=== PATIENT | female | born 1955 | race Caucasian/White ===

== ENCOUNTER 2022-02-20 16:20 | Inpatient (IN) | payer BC ==
--- OUTSIDE RECORDS SUMMARY | 2022-02-20 16:23 | XMS REPORT | Continuity of Care Document ---
:1955 Author Organization [facility] Address [address] [place] [address] Dr. Briceño [address] [place] [id number] Care Team Providers Name Role Phone Caesar Arthur Attending Clinician Unavailable Problems This patient has no known problems. Allergies, Adverse Reactions, Alerts This patient has no known allergies or adverse reactions. Medications This patient has no known medications. Procedures This patient has no known procedures. Encounters Start End Encounter Admission Attending Care Care Encounter Source Date/Time Date/Time Type Type Clinicians Facility Department ID 2021-11-02 Outpatient Caesar Arthur [facility] [id number] Common 07:49:01 [facility] Results This patient has no known results.
[2022-02-20 17:25] LABS: Hematocrit 41.8 % (36.0-45.0); Lymphocytes % 26.9 % (15.3-44.8); MCV 83.4 fL (80-100); MPV 9.6 fL (7.6-11.3); RBC Red Blood Cell Count 5.01 M/uL (3.86-4.86)
[2022-02-20 18:08] LABS: Albumin 3.8 g/dL (3.4-5.0); Bilirubin Direct 0.2 mg/dL (0-0.2); Bilirubin Total 0.5 mg/dL (0.2-1.0); Magnesium 2.7 mg/dL (1.8-2.4); Potassium 4.7 mmol/L (3.5-5.1); Protein, Total 7.5 g/dL (6.4-8.2); Troponin High Sensitivity 15.1 pg/mL (<58.9)
--- NOTE | 2022-02-20 19:40 | EDPHYS ---
Physician Documentation [facility] Name: Carley Elizabeth Age: 66 yrs Sex: Female : 1955 Arrival Date: 02/20/2022 Time: 16:22 Bed 26 Private MD: Caesar Arthur T ED Physician Coral Billingsley HPI: 02/20 21:34 This 66 yrs old Female presents to ER via Ambulatory with complaints of Blood clots in kb lungs. 21:34 The patient has shortness of breath at rest. Onset: The symptoms/episode began/occurred kb 2 month(s) ago. Duration: The symptoms are continuous. The patient's shortness of breath is aggravated by exertion, is alleviated by nothing. Associated signs and symptoms: The patient has no apparent associated signs or symptoms. Severity of symptoms: At their worst the symptoms were moderate in the emergency department the symptoms are unchanged. The patient has not experienced similar symptoms in the past. The patient has been recently seen by a physician:. Pt reports shortness of breath, worse on exertion, that started about 2 months ago. States she was referred to Dr Lee who ordered a CT PE which she had done today. States she was on her way home when his office called and told her to come to the ER for admission due to bilateral PEs. Historical: - Allergies: 16:53 No Known Allergies; ss - Home Meds: 16:54 iron supplement [Active]; ss - PMHx: 16:54 None; ss - PSHx: 16:54 Gastric Bypass 2010; Cholecystectomy; ss - Immunization history:: Adult Immunizations up to date. - Social history:: Smoking status: Patient denies any tobacco usage or history of. ROS: 21:33 Constitutional: Negative for fever, chills, and weight loss. kb 21:33 Respiratory: Positive for dyspnea on exertion, shortness of breath. 21:33 All other systems are negative. Exam: 21:33 Constitutional: This is a well developed, well nourished patient who is awake, alert, kb and in no acute distress. Head/Face: Normocephalic, atraumatic. ENT: Moist Mucous membranes Cardiovascular: Regular rate and rhythm with a normal S1 and S2. No gallops, murmurs, or rubs. No pulse deficits. Respiratory: Respirations even and unlabored. No increased work of breathing. Talking in full sentences Abdomen/GI: Soft, non-tender. No distention Skin: Warm, dry with normal turgor. Normal color. MS/ Extremity: Pulses equal, no cyanosis. Neurovascular intact. Full, normal range of motion. Neuro: Awake and alert, GCS 15, oriented to person, place, time, and situation. Moves all extremities. Normal gait. Psych: Awake, alert, with orientation to person, place and time. Behavior, mood, and affect are within normal limits. Vital Signs: 16:51 Pulse 69; Resp 19; Temp 97.9(O); Pulse Ox 91% on R/A; Weight 150.14 kg; Height 5 ft. 5 ss in. (165.10 cm); Pain 0/10; 16:54 BP 138 / 73; ss 19:25 BP 133 / 76; Pulse 62; Resp 18 S; Pulse Ox 94% on R/A; Pain 0/10; ha1 20:30 BP 110 / 68; Pulse 62; Resp 22 S; Pulse Ox 96% on R/A; ha1 21:30 BP 120 / 65; Pulse 66; Resp 17; Pulse Ox 92% on R/A; ha1 22:31 BP 109 / 65; Pulse 65; Resp 19 S; Pulse Ox 93% on R/A; ha1 16:51 Body Mass Index 55.08 (150.14 kg, 165.10 cm) ss MDM: 16:59 Patient medically screened. kb 21:33 Data reviewed: vital signs, nurses notes. Data interpreted: Pulse oximetry: on room air kb is 96 %. Interpretation: normal. Counseling: I had a detailed discussion with the patient and/or guardian regarding: the historical points, exam findings, and any diagnostic results supporting the discharge/admit diagnosis, lab results, radiology results, the need for further work-up and treatment in the hospital. 02/20 17:00 Order name: Basic Metabolic Panel; Complete Time: 18:13 kb 02/20 17:00 Order name: CBC with Diff; Complete Time: 17:29 kb 02/20 17:00 Order name: LFT's; Complete Time: 18:13 kb 02/20 17:00 Order name: Magnesium; Complete Time: 18:13 kb 02/20 17:00 Order name: NT PRO-BNP; Complete Time: 18:13 kb 02/20 17:00 Order name: PT-INR; Complete Time: 17:30 kb 02/20 17:00 Order name: Troponin HS; Complete Time: 18:13 kb 02/20 20:09 Order name: SARS RAPID: pt. admited; Complete Time: 20:55 ha1 02/20 23:36 Order name: Urine Dipstick-Ancillary; Complete Time: 00:26 EDMS 02/21 02:26 Order name: CBC with Automated Diff; Complete Time: 02:28 EDMS 02/21 02:53 Order name: Basic Metabolic Panel; Complete Time: 04:17 EDMS 02/21 02:53 Order name: Magnesium; Complete Time: 04:17 EDMS 02/21 09:04 Order name: US EDMS 02/20 17:00 Order name: EKG; Complete Time: 17:00 kb 02/20 17:00 Order name: Cardiac monitoring; Complete Time: 19:35 kb 02/20 17:00 Order name: EKG - Nurse/Tech; Complete Time: 19:35 kb 02/20 17:00 Order name: IV Saline Lock; Complete Time: 19:35 kb 02/20 17:00 Order name: Labs collected and sent; Complete Time: 19:35 kb 02/20 17:00 Order name: O2 Per Protocol; Complete Time: 19:35 kb 02/20 17:00 Order name: O2 Sat Monitoring; Complete Time: 19:35 kb Administered Medications: 19:51 Drug: Lovenox (enoxaparin) 1 mg/kg Route: Sub-Q; Site: right lower abdomen; ha1 20:30 Follow up: Response: No adverse reaction ha1 Disposition Summary: 02/20/22 19:40 Hospitalization Ordered Hospitalization Status: Observation kb Provider: Fabian Phillips Condition: Fair kb Problem: new kb Symptoms: are unchanged kb Bed/Room Type: Standard kb Location: Telemetry/MedSurg (observation)(02/21/22 15:43) dw Room Assignment: 411(02/21/22 15:43) dw Diagnosis - Pulmonary embolism without acute cor pulmonale kb Forms: - Medication Reconciliation Form kb - SBAR form kb Addendum: 02/24/2022 19:31 STAFF ATTESTATION STATEMENT: I was immediately available onsite in the emergency s d2 department for consultation in the care of this patient. I did not see or examine this patient. Coral Billingsley MD. Signatures: Dispatcher [employer] EDDebra Kelsey, REQUIREMENTS ANALYST-C REQUIREMENTS ANALYST-Barbra Flanenry, RN RN Keya Person RN RN ss Basinger, Emily, RN RN Coral Hills MD MD sd2 Sydney Seals RN RN Whitley Salazar, PADavidC PA-Janneth sb4 Corrections: (The following items were deleted from the chart) 02/20 21: 19:40 Telemetry/MedSurg (observation) kb eb1 19:40 kb eb1 02/21 15:43 02/20 21:33 [facility] ER HOLD eb1 dw 02/21 15:43 02/20 21:33 ERHOLD- eb1 dw
--- NOTE | 2022-02-20 19:40 | ER ---
Nurse's Notes [facility] Name: Carley Elizabeth Age: 66 yrs Sex: Female : 1955 Arrival Date: 02/20/2022 Time: 16:22 Bed 26 Private MD: Caesar Arthur T Diagnosis: Pulmonary embolism without acute cor pulmonale Presentation: 02/20 16:51 Chief complaint: Patient states: SOB that has been ongoing for months. Dr. Lee ordered and out patient CTA of lungs which showed blood clots to bilateral lungs. Coronavirus screen: Client denies travel out of the [place] in the last 14 days. Ebola Screen: Patient denies exposure to infectious person. Patient denies travel to an Ebola-affected area in the 21 days before illness onset. Initial Sepsis Screen: Does the patient meet any 2 criteria? No. Patient's initial sepsis screen is negative. Does the patient have a suspected source of infection? No. Patient's initial sepsis screen is negative. Risk Assessment: Do you want to hurt yourself or someone else? Patient reports no desire to harm self or others. Onset of symptoms is unknown. 16:51 Method Of Arrival: Ambulatory ss 16:51 Acuity: SELIN 2 ss Historical: - Allergies: 16:53 No Known Allergies; ss - Home Meds: 16:54 iron supplement [Active]; ss - PMHx: 16:54 None; ss - PSHx: 16:54 Gastric Bypass 2010; Cholecystectomy; ss - Immunization history:: Adult Immunizations up to date. - Social history:: Smoking status: Patient denies any tobacco usage or history of. Assessment: 19:25 General: Appears in no apparent distress. Behavior is calm, cooperative. Pain: Denies ha1 pain. Neuro: Level of Consciousness is awake, alert, obeys commands, Oriented to person, place, time, situation. Cardiovascular: Reports shortness of breath, going to the cardiologies today and being diagnosed with bilateral clots in the lungs. Patient's skin is warm and dry. Respiratory: Reports shortness of breath on exertion Airway is patent Trachea midline Respiratory effort is even, unlabored, Respiratory pattern is regular, symmetrical. GI: No signs and/or symptoms were reported involving the gastrointestinal system. 20:30 Reassessment: Patient appears in no apparent distress at this time. No changes from ha1 previously documented assessment. Patient and/or family updated on plan of care and expected duration. Pain level reassessed. Patient is alert, oriented x 3, equal unlabored respirations, skin warm/dry/pink. Patient denies pain at this time. 21:22 Reassessment: Patient and/or family updated on plan of care and expected duration. Pain ha1 level reassessed. Patient is alert, oriented x 3, equal unlabored respirations, skin warm/dry/pink. 22:31 Reassessment: Patient appears in no apparent distress at this time. Patient and/or ha1 family updated on plan of care and expected duration. Pain level reassessed. Patient is alert, oriented x 3, equal unlabored respirations, skin warm/dry/pink. Vital Signs: 16:51 Pulse 69; Resp 19; Temp 97.9(O); Pulse Ox 91% on R/A; Weight 150.14 kg; Height 5 ft. 5 ss in. (165.10 cm); Pain 0/10; 16:54 BP 138 / 73; ss 19:25 BP 133 / 76; Pulse 62; Resp 18 S; Pulse Ox 94% on R/A; Pain 0/10; ha1 20:30 BP 110 / 68; Pulse 62; Resp 22 S; Pulse Ox 96% on R/A; ha1 21:30 BP 120 / 65; Pulse 66; Resp 17; Pulse Ox 92% on R/A; ha1 22:31 BP 109 / 65; Pulse 65; Resp 19 S; Pulse Ox 93% on R/A; ha1 16:51 Body Mass Index 55.08 (150.14 kg, 165.10 cm) ED Course: 16:22 Patient arrived in ED. mr 16:23 Caesar Arthur MD is Private Physician. mr 16:53 Triage completed. ss 16:53 Arm band placed on right wrist. ss 16:59 Debra Fontanez FNP-C [facility]. kb 16:59 Coral Billingsley MD is Attending Physician. kb 17:10 Inserted saline lock: 20 gauge in left antecubital area, using aseptic technique. ss 19:14 Sydney Seals, DINA is Primary Nurse. ha1 19:40 Fabian Phillips MD is Hospitalizing Provider. kb Administered Medications: 19:51 Drug: Lovenox (enoxaparin) 1 mg/kg Route: Sub-Q; Site: right lower abdomen; ha1 20:30 Follow up: Response: No adverse reaction ha1 Outcome: 19:40 Decision to Hospitalize by Provider. 02/21 17:39 Patient left the ED. Signatures: Debra Fontanez FNP-C FNP-Navya Brantley Shelby, RN RN Sydney Seals RN RN ha1
[2022-02-20] MEDS ORDERED: ENOXAPARIN 100 MG/ML SYR SQ ONE (19:54)
[2022-02-20] MEDS ORDERED: ENOXAPARIN 40 MG/0.4 ML SQ ONE (19:54)
--- NOTE | 2022-02-20 20:24 | P.HP ---
Certification for Inpatient Patient admitted to: Observation With expected LOS: <2 Midnights Patient will require the following post-hospital care: None Practitioner: I am a practitioner with admitting privileges, knowledge of patient current condition, hospital course, and medical plan of care. Services: Services provided to patient in accordance with Admission requirements found in Title 42 Section 412.3 of the Code of Federal Regulations Patient History Date of Service: 02/21/22 Reason for admission: Bilateral PEs History of Present Illness: Patient is a 66 year old female with morbid obesity and anemia who presented to the ED with complaints of worsening shortness of breath x 2 months. She went to see Dr. Lee yesterday who ordered a CT chest angio that showed fairly extensive bilateral pulmonary emboli. She was then sent to ED for admission. She was saturating 91% on RA upon arrival to ED. Labs within normal limits. EKG without acute changes. She was started on therapeutic lovenox. She is admitted for further management. Allergies No Known Allergies Allergy (Unverified 02/20/22 23:15) Home medications list reviewed: Yes Home Medications: Ferrous Fumarate/Ascorbic Acid [Jewel-Sequels 65-25 mg Caplet] See Rx Instructions .ROUTE .COMPLEX 02/20/22 - Past Medical/Surgical History Diabetic: No -: Anemia -: Gastric Bypass -: Cholecystectomy Psychosocial/ Personal History: Patient is . - Family History Family History: Reviewed- Non-Contributory - Social History Smoking Status: Never smoker Alcohol use: No CD- Drugs: No Caffeine use: Yes Place of Residence: Home Review of Systems Respiratory: Shortness of Breath, SOB with Excertion Physical Examination - Physical Exam General: Alert, In no apparent distress, Obese HEENT: Atraumatic, PERRLA, EOMI, Sclerae nonicteric Neck: Supple, 2+ carotid pulse no bruit, No LAD, Without JVD or thyroid abnormality Respiratory: Clear to auscultation bilaterally, Normal air movement Cardiovascular: Regular rate/rhythm, Normal S1 S2 Gastrointestinal: Normal bowel sounds, No tenderness Musculoskeletal: No tenderness Integumentary: No rashes Neurological: Normal speech, Normal strength at 5/5 x4 extr, Normal tone, Normal affect - Studies Laboratory Data (last 24 hrs) 02/20/22 17:11: PT 11.0, INR 1.00 02/20/22 17:11: WBC 7.20, Hgb 13.5, Hct 41.8, Plt Count 253 02/20/22 17:11: Sodium 137, Potassium 4.7, BUN 22 H, Creatinine 0.85, Glucose 95, Magnesium 2.7 H, Total Bilirubin 0.5, AST 18, ALT 19, Alkaline Phosphatase 106 Assessment and Plan - Problems (Diagnosis) (1) Bilateral pulmonary embolism Current Visit: Yes Status: Acute (2) Hypoxia Current Visit: Yes Status: Acute (3) Morbid obesity Current Visit: Yes Status: Chronic - Plan -Patient is admitted for observation -Continue therapeutic lovenox -Monitor pulse oximetry and telemetry -Pulmonology consulted -Monitor and replete electrolytes per protocol -Full code Discharge Plan: Home Plan to discharge in: 24 Hours - Advance Directives Does patient have a Living Will: No Does patient have a Durable POA for Healthcare: No - Code Status/Comfort Care Code Status Assessed: Yes (Full) Critical Care: No Time Spent Managing Pts Care (In Minutes): 50
[2022-02-20 20:52] LABS: SARS-CoV-2 Antigen Rapid Res Negative (Negative)
[2022-02-20 23:17] VITALS: BMI 55.0
[2022-02-20] MEDS ORDERED: ACETAMINOPHEN 500 MG TAB PO PRN (23:17)
[2022-02-20] MEDS ORDERED: ALBUTEROL 2.5 MG/3 ML NEB SOL NEB PRN (23:17)
[2022-02-20] MEDS ORDERED: ONDANSETRON 4 MG/2 ML VIAL IV PRN (23:17)
[2022-02-20 23:35] LABS: Urine Blood Negative (Negative); Urine Glucose Negative (Negative); Urine Protein Negative (Negative); Urine pH 5.5 (5.0-7.0)
[2022-02-21 02:25] LABS: Absolute Lymphocytes (CBC) 1.9 K/uL (0.7-4.9); Hematocrit 38.3 % (36.0-45.0); Lymphocytes % 34.9 % (15.3-44.8); MCV 82.6 fL (80-100); MPV 9.3 fL (7.6-11.3); RBC Red Blood Cell Count 4.64 M/uL (3.86-4.86)
[2022-02-21 02:46] LABS: Magnesium 2.5 mg/dL (1.8-2.4); Potassium 3.9 mmol/L (3.5-5.1)
--- NOTE | 2022-02-21 06:32 | EKG ---
Test Date: 2022-02-20 Test Time: 19:25:08 [place] Supervisor: ZURI MEASUREMENT RESULTS: Intervals: Rate: 62 KS: 180 QRSD: 88 QT: 454 QTc: 460 [place]: P: 60 KS: 180 QRS: 40 T: 51 INTERPRETIVE STATEMENTS: Normal sinus rhythm Possible Lateral infarct, age undetermined Abnormal ECG No previous ECG available for comparison Electronically Signed On 02-21-22 06:31:03 CDT by Derik Masters
[2022-02-21] MEDS: APIXABAN 5 MG TABLET PO SCH ×2 (09:00→20:12)
[2022-02-21] MEDS ORDERED: Enoxaparin 120 MG/0.8 ML SYR SQ SCH (09:00)
--- NOTE | 2022-02-21 09:03 | RAD REPORT ---
EXAM DESCRIPTION: USExtrem Venous W Compress Bil02/21/2022 8:36 am CLINICAL HISTORY: Leg pain COMPARISON: none FINDINGS: Echogenic material consistent with thrombus is present within the right popliteal vein. Th e vein is partially compressible The common femoral, superficial femoral, left popliteal and posterior tibial veins bilaterally are co mpressible and demonstrate augmentation. Doppler demonstrates good flow. Grayscale, color and spectral analysis performed on all vessels IMPRESSION: Acute thrombus right popliteal vein
[2022-02-21] MEDS ORDERED: APIXABAN 5 MG TABLET ONE (09:19)
--- NOTE | 2022-02-21 11:48 | P.CNS ---
Date of Consult: 02/21/22 Reason for Consult: Pulmonary emboli Chief Complaint: Bilateral PEs History of Present Illness: Patient is 66 years of age was admitted with the bilateral pulmonary emboli after CT pulmonary angiogram she has been short of breath for about 2 months and became worse over the past 2 weeks no risk factors for thromboemboli no cancers no prior history of cardiopulmonary problems she feels fine denies lower extremity edema Allergies No Known Allergies Allergy (Unverified 02/20/22 23:15) Home Medications: Ferrous Fumarate/Ascorbic Acid [Jewel-Sequels 65-25 mg Caplet] See Rx Instructions .ROUTE .COMPLEX 02/20/22 - Past Medical/Surgical History Diabetic: No -: Anemia -: Gastric Bypass -: Cholecystectomy Psychosocial/ Personal History: Patient is . - Social History Alcohol use: No CD- Drugs: No Caffeine use: Yes Place of Residence: Home Physical Examination Temp Pulse Resp BP Pulse Ox 97.9 F 67 17 119/56 L 93 02/21/22 08:00 02/21/22 08:00 02/21/22 08:00 02/21/22 08:00 02/21/22 08:00 General: Alert, Oriented x3 Neck: Supple Respiratory: Clear to auscultation bilaterally Cardiovascular: No edema, Regular rate/rhythm, Normal S1 S2 Gastrointestinal: Normal bowel sounds, Soft and benign Laboratory Data (last 24 hrs) 02/20/22 17:11: PT 11.0, INR 1.00 02/20/22 17:11: WBC 7.20, Hgb 13.5, Hct 41.8, Plt Count 253 02/20/22 17:11: Sodium 137, Potassium 4.7, BUN 22 H, Creatinine 0.85, Glucose 95, Magnesium 2.7 H, Total Bilirubin 0.5, AST 18, ALT 19, Alkaline Phosphatase 106 - Problems (1) Bilateral pulmonary embolism Current Visit: Yes Status: Acute Plan: Patient is 66 years of age admitted with bilateral pulmonary embolism she has been short of breath for 2 months worse over the past [address] pulmonary angiogram was done as an outpatient is no prior history of cardiopulmonary disorder no risk factors for thromboemboli she has thrombus in the right popliteal vein patient will need possibly lifelong anticoagulation agree with Franc check room air pulse ox ambulate possible discharge follow-up with me in 2 weeks echocardiogram is pending possible VQ scan in 3 months to rule out chronic thromboembolic pulmonary hypertension vital signs stable patient does not qualify for thrombolytic therapy
--- NOTE | 2022-02-21 13:37 | ECHO ---
HEIGHT: 5 ft 5 in WEIGHT: 331 lb 0 oz DATE OF STUDY: 02/21/[address]: Fabian Phillips MD 2-DIMENSIONAL: YES M.MODE: YES DOPPLER: YES COLOR FLOW: YES TDS: YES PORTABLE: YES DEFINITY: NO BUBBLE STUDY: NO DIAGNOSIS: PULMONARY EMBOLISM, RVP CARDIAC HISTORY: CATHERIZATION: NO SURGERY: NO PROSTHETIC VALVE: NO PACEMAKER: NO MEASUREMENTS (cm) DIASTOLIC (NORMALS) SYSTOLIC (NORMALS) IVSd 1.1 (0.6-1.2) LA Diam 2.2 (1.9-4.0) LVEF 59% LVIDd 4.7 (3.5-5.7) LVIDs 3.2 (2.0-3.5) %FS 31% LVPWd 1.2 (0.6-1.2) Ao Diam 2.7 (2.0-3.7) 2 DIMENSIONAL ASSESSMENT: RIGHT ATRIUM: NORMAL LEFT ATRIUM: NORMAL RIGHT VENTRICLE: NORMAL LEFT VENTRICLE: NORMAL TRICUSPID VALVE: NORMAL MITRAL VALVE: NORMAL PULMONIC VALVE: NORMAL AORTIC VALVE: NORMAL PERICARDIAL EFFUSION: NONE AORTIC ROOT: NORMAL LEFT VENTRICULAR WALL MOTION: NORMAL DOPPLER/COLOR FLOW: MILD AORTIC AND TRICUSPID REGURGITATION. COMMENTS: MILD AORTIC AND TRICUSPID REGURGITATION. NORMAL RIGHT VENTRICULAR SYSTOLIC PRESSURE. NORMAL LEFT VENTRICULAR SIZE AND FUNCTION. NO WALL MOTION ABNORMALITY. TECHNOLOGIST: Martha ARNOLD
[2022-02-21] MEDS ORDERED: ALBUTEROL 2.5 MG/3 ML NEB SOL NEB PRN (15:00)
--- NOTE | 2022-02-21 20:49 | CON ---
Date of Consultation: 02/21/2022 I saw the patient on 02/21/2022. Reason For Consultation: Bilateral pulmonary embolism. History Of Present Illness: Ms. Elizabeth is 66, past medical history of obesity, hypertension, diabe barbara, dyslipidemia. Saw Dr. Lee in the office, was with shortness of breath, elevated BNP by marta aldridge, elevated D-dimer. CT angiogram showed bilateral pulmonary embolus. She was sent to the [facility] room and admitted for further evaluation and treatment. She is on Eliquis right now and alread y feeling better with mild shortness of breath. Past Medical History: As stated above. Allergies: NONE. Review of Systems: Negative. Social History: Negative. Family History: Negative. Medications: Listed by the admitting physician. Physical Examination: Vital Signs: Stable, afebrile. HEENT: Negative. Neck: Supple with no bruit. Chest: Clear. Cardiac: Revealed a regular rhythm and rate. No murmurs, gallops, or rubs. Abdomen: Obese. Extremities: Revealed trace edema. Diagnostic Data: Positive for pulmonary embolus. Impression And Plan: Bilateral pulmonary embolus in a patient with obesity, multiple cardiac risk fa ctors. She is on Eliquis. She is more comfortable. I think she can go home today or tomorrow on El iquis, PE protocol and she probably should continue that for life. I will see her in the office in t he next week or 2. BONI/INO Voice ID: [id number] Report ID: [id number]
[2022-02-22] MEDS: APIXABAN 5 MG TABLET PO SCH ×2 (09:37→22:33)
--- NOTE | 2022-02-22 12:34 | PN ---
The patient admitted with pulmonary embolus, bilateral. She is feeling much better today on Eliquis. Her vital signs are stable. She is afebrile. She is in sinus rhythm. Echocardiogram was done constantino wed normal ejection fraction without any evidence of pulmonary hypertension or right heart failure. I think Ms. Elizabeth is ready to be discharged. As far as we are concerned, we will see her in the o ffice in the next week or 2. Dr. Juarez is following her and he will make a decision as far as dis charge is concerned. I think she probably needs to be on Eliquis for the rest of her life. BONI/INO Voice ID: [id number] Report ID: [id number]
--- NOTE | 2022-02-22 12:40 | P.PN ---
Subjective Date of Service: 02/22/22 Chief Complaint: Bilateral PEs Subjective: Improving (Improving still short of breath on exertion borderline sats around 90% off O2) Review of Systems Unremarkable Respiratory: Shortness of Breath Physical Examination - Vital Signs Temperature: 96.9 F Blood Pressure: 128/64 Pulse: 65 Respirations: 18 Pulse Ox (%): 95 - Physical Exam General: Alert, Oriented x3 Respiratory: Clear to auscultation bilaterally, Friction rub Cardiovascular: Regular rate/rhythm, Normal S1 S2 Assessment And Plan - Current Problems (Diagnosis) (1) Bilateral pulmonary embolism Current Visit: Yes Status: Acute Plan: Patient is doing better stable/borderline hypoxemia continue with oral anticoagulation ambulate check her oxygen saturations VQ scan in 3 months to check for chronic thromboembolic pulmonary hypertension although echocardiogram is normal blood pressure stable no indication for thrombolytic therapy follow-up with me in 2 weeks
--- NOTE | 2022-02-23 02:19 | P.PN ---
Date of Service: 02/21/22 Subjective patient continues to do well. Awaiting for imaging studies. Wean off of oxygen as well. Physical Examination - Physical Exam General: Alert, In no apparent distress, Obese Respiratory: Clear to auscultation bilaterally, Normal air movement Cardiovascular: Regular rate/rhythm, Normal S1 S2 Gastrointestinal: Normal bowel sounds, No tenderness Neurological: No focal deficits Assessment and Plan - Problems (Diagnosis) (1) Bilateral pulmonary embolism Current Visit: Yes Status: Acute (2) Hypoxia Current Visit: Yes Status: Acute (3) Morbid obesity Current Visit: Yes Status: Chronic - Plan -Patient remains hypoxic. Arrange for home oxygen. Changed to inpatient. -Change to oral Eliquis -Monitor pulse oximetry and telemetry -Pulmonology consulted -Monitor and replete electrolytes per protocol
--- NOTE | 2022-02-23 02:29 | P.PN ---
Date of Service: 02/22/22 Subjective patient also with a popliteal DVT. Not able to arrange for home oxygen because the patient's diagnosis. Continue with anticoagulation. Physical Examination - Physical Exam General: Alert, In no apparent distress, Obese Respiratory: Clear to auscultation bilaterally, Normal air movement Cardiovascular: Regular rate/rhythm, Normal S1 S2 Gastrointestinal: Normal bowel sounds, No tenderness Neurological: No focal deficits Assessment and Plan - Problems (Diagnosis) (1) Bilateral pulmonary embolism Current Visit: Yes Status: Acute (2) Hypoxia Current Visit: Yes Status: Acute (3) Morbid obesity Current Visit: Yes Status: Chronic - Plan -Patient remains hypoxic. Arrange for home oxygen. Venous Doppler with a DVT -Change to oral Eliquis -Monitor pulse oximetry and telemetry -Pulmonology consultation appreciated
--- NOTE | 2022-02-23 02:35 | P.DS ---
Discharge Date: 02/23/22 Disposition: ROUTINE DISCHARGE Discharge Condition: GOOD Reason for Admission: Bilateral PEs Brief History of Present Illness: Patient is a 66 year old female with morbid obesity and anemia who presented to the ED with complaints of worsening shortness of breath x 2 months. She went to see Dr. Lee yesterday who ordered a CT chest angio that showed fairly extensive bilateral pulmonary emboli. She was then sent to ED for admission. She was saturating 91% on RA upon arrival to ED. Labs within normal limits. EKG without acute changes. She was started on therapeutic lovenox. She is admitted for further management. Hospital Course: patient is clinically doing well. Symptoms are improving. Patient's oxygen level is stable. Plan to discharge home with oral anticoagulation. Follow with Pulmonary in 1-2 weeks. Vital Signs/Physical Exam: Temp Pulse Resp BP Pulse Ox 97.2 F 66 17 136/60 98 02/23/22 00:00 02/23/22 00:00 02/23/22 00:00 02/23/22 00:00 02/23/22 00:00 General: Alert, In no apparent distress, Oriented x3 Laboratory Data at Discharge: WBC 5.40 K/uL (4.3-10.9) 02/21/22 02:04 Hgb 12.5 g/dL (12.0-15.0) 02/21/22 02:04 Hct 38.3 % (36.0-45.0) 02/21/22 02:04 Plt Count 198 K/uL (152-406) 02/21/22 02:04 PT 11.0 SECONDS (9.5-12.5) 02/20/22 17:11 INR 1.00 02/20/22 17:11 Sodium 140 mmol/L (136-145) 02/21/22 02:04 Potassium 3.9 mmol/L (3.5-5.1) D 02/21/22 02:04 BUN 19 mg/dL (7-18) H 02/21/22 02:04 Creatinine 0.76 mg/dL (0.55-1.3) 02/21/22 02:04 Glucose 94 mg/dL (74-106) 02/21/22 02:04 Magnesium 2.5 mg/dL (1.8-2.4) H 02/21/22 02:04 Total Bilirubin 0.5 mg/dL (0.2-1.0) 02/20/22 17:11 AST 18 U/L (15-37) 02/20/22 17:11 ALT 19 U/L (12-78) 02/20/22 17:11 Alkaline Phosphatase 106 U/L (45-117) 02/20/22 17:11 Home Medications: Ferrous Fumarate/Ascorbic Acid [Jewel-Sequels 65-25 mg Caplet] See Rx Instructions .ROUTE .COMPLEX 02/20/22 Apixaban [Eliquis] 10 mg PO BID #60 tablet 02/23/22 New Medications: Apixaban [Eliquis] 10 mg PO BID #60 tablet Physician Discharge Instructions: OK TO DC IV AND DC HOME FOLLOW-UP WITH PRIMARY CARE PROVIDER IN 1-2 WEEKS FOLLOW-UP WITH Pulmonary IN 1-2 WEEKS RETURN TO THE ER IF symptoms worsen CALL DR. LAM AT [phone] IF ANY QUESTIONS REGARDING HOSPITAL STAY. PLEASE CALL THE FLOOR AT [phone] IF ANY MEDICATION OR NURSING QUESTIONS. Diet: Regular Activity: Fall precautions Followup: Caesar Arthur MD [Primary Care Provider] - Time spent managing pt's care (in minutes): 35
[2022-02-23 08:05] VITALS: BP 118/56; TEMP 97
[2022-02-23 08:49] VITALS: O2SAT 93
[2022-02-23] MEDS ORDERED: POTASSIUM CL SA 10 MEQ TAB PO ONE (09:00)
[2022-02-23] MEDS: APIXABAN 5 MG TABLET PO SCH (10:16)
== END 2022-02-23 12:23 | disposition home or self-care (01) | DRG 176 ==
LOC: ER 16:20 → ERHOLD 20:20 → OBSVTOIN 02-21 15:44 → 4TH 02-21 17:14
PROVIDERS: ADMIT Hospitalist; ATTEND Hospitalist
DX: I26.99 Other pulmonary embolism without acute cor pulmonale (principal); Z68.43 Body mass index [BMI] 50.0-59.9, adult; I82.431 Acute embolism and thrombosis of right popliteal vein; E66.01 Morbid (severe) obesity due to excess calories; I10 Essential (primary) hypertension; D64.9 Anemia, unspecified; E11.9 Type 2 diabetes mellitus without complications; R09.02 Hypoxemia; Z88.8 Allergy status to other drugs, medicaments and biological substances; Z90.49 Acquired absence of other specified parts of digestive tract; Z98.84 Bariatric surgery status; Z20.822 Contact with and (suspected) exposure to COVID-19
CPT/HCPCS: 36415; 80048; 80076; 81003; 83735; 83880; 84484; 85025; 85610; 87811; 93005; 93306; 93970; 94760; 96372; 99283; G0378; J1650